=== PATIENT | female | born 1950 | race Caucasian/White ===

== ENCOUNTER 2020-01-22 12:48 | Emergency (ER) | payer MEDICARE, BC ==
[~2020-01-22] VITALS: Ht 162.6 cm; Wt 72.6 kg
--- NOTE | 2020-01-22 13:14 | NUR ---
CAME IN FOR CUT ON RIGHT KNEE S/P TRIP & FALL TODAY, ALSO FELL 2 DAYS AGO. TO ER BED 10. CHANGED TO HOSP [facility], AWAITING MD SENA
--- NOTE | 2020-01-22 14:12 | NUR ---
DR FONTENOT AT BEDSIDE
--- NOTE | 2020-01-22 14:30 | NUR ---
Patient discharged to home in stable condition. Written and verbal after care instructions given. Patient verbalizes understanding of instruction.
[2020-01-22 14:31] VITALS: BP 142/85
== END 2020-01-22 14:32 | disposition home or self-care (01) ==
LOC: ER 12:58
DX: S81.011A Laceration without foreign body, right knee, initial encounter (principal); S60.511A Abrasion of right hand, initial encounter; Z60.2 Problems related to living alone; W01.0XXA Fall on same level from slipping, tripping and stumbling without subsequent striking against object, initial encounter; Y93.89 Activity, other specified; Y92.098 Other place in other non-institutional residence as the place of occurrence of the external cause; Y99.8 Other external cause status
CPT/HCPCS: 12002; 99282; A6403